=== PATIENT | female | born 1960 | race Caucasian/White ===

== ENCOUNTER 2021-06-06 09:12 | Emergency (ER) | payer OTHER, SELFPAY ==
[2021-06-06] VITALS (7 sets, daily range): BP systolic 151–189; BP diastolic 82–116; PULSE 69–108; RESP 15–20; TEMP 36.5–36.9; O2SAT 97–100
--- NOTE | ~2021-06-06 | XR_ITS ---
XR chest 2V DATE: 06/06/2021 09:39 INDICATION: Chest pain, shortness of breath. Chest tightness. Dizziness. TECHNIQUE: 2 views COMPARISON: None FINDINGS: Normal heart size. No hilar or mediastinal enlargement. Bilateral hyperinflation suggests COPD. No pulmonary infiltrate or consolidation, pleural effusion or pulmonary vascular congestion or pneumothorax is detected. Diffuse osteopenia. IMPRESSION: Bilateral hyperinflation; no active cardiopulmonary disease Reviewed, dictated and finalized at location A. ICE COUNTER CASHIER
--- NOTE | ~2021-06-06 | CT_ITS ---
EXAMINATION: CT brain wo con EXAM DATE: 06/06/2021 15:10 INDICATION: Dizziness. TECHNIQUE: Spiral CT of the head was performed without contrast. Axial, coronal and sagittal images were reviewed. The dose-length product (DLP) for this examination was 605.33 mGy-cm. The exposure w as tailored according to patient size, and iterative reconstruction (ASIR) was used as additional dos e reduction technique. There is no prior study for comparison. FINDINGS: There is no acute intraparenchymal hemorrhage. No evidence of intraparenchymal brain mass lesion. No evidence of acute infarction. There is no mass effect or midline shift. The ventricles are normal in size. There are no extra-axial collections. There are no acute calvarial fractures. T he orbits are unremarkable. Soft tissue is unremarkable. The visualized sinuses and mastoid air shima ls are well aerated. IMPRESSION: 1. No acute intracranial findings. Reviewed, dictated and finalized at location A. [employer] COMPENSATION LEGAL SECRETARY
--- NOTE | ~2021-06-06 | CT_ITS ---
EXAMINATION: CTA chest PE protocol EXAM DATE: 06/06/2021 15:10 INDICATION: Chest pain, sob, abnormal d dimer. TECHNIQUE: Spiral CTA of the chest (pulmonary arteries) was performed with 100 cc Omnipaque 350 intr avenous contrast injection. Images were acquired during the pulmonary arterial phase. Coronal maxi mum intensity projection 3D-reconstructions were created by the technologist on dedicated workstation . Axial, coronal and sagittal reformatted images were reviewed. The dose-length product (DLP) for t his examination was 151.89 mGy-cm. The exposure was tailored according to patient size (auto mA exp osure control), and iterative reconstruction (ASIR) was used as additional dose reduction technique. There is no prior study for comparison. FINDINGS: Pulmonary arteries are well opacified and without intraluminal filling defects. There is m oderate emphysema. No thoracic aortic dissection. The lungs are clear. There are no pleural or pe ricardial effusions. Tracheobronchial tree is patent. Small pocket of gas right posterolateral aspe ct of the trachea probably tracheal diverticulum. There is no mediastinal, hilar or axillary lymphade nopathy. There is no pneumothorax. Heart normal in size. There is mild coronary arterial calcif ication, arterial sclerosis. Upper abdomen is unremarkable. The bones are unremarkable. IMPRESSION: 1. No pulmonary emboli or acute cardiopulmonary findings. 2. Moderate emphysema. Reviewed, dictated and finalized at location A. LRY SORTER
--- NOTE | 2021-06-06 09:31 | ECG_ITS ---
Measurements Intervals Gem Rate: 88 P: 88 WI: 162 QRS: -48 QRSD: 91 T: 69 QT: 359 QTc: 436 Interpretive Statements SINUS RHYTHM RIGHT ATRIAL ENLARGEMENT POSSIBLE LEFT ATRIAL ENLARGEMENT LEFT AXIS DEVIATION INCOMPLETE RIGHT BUNDLE BRANCH BLOCK DELAYED PRECORDIAL R/S TRANSITION CONSIDER INFERIOR INFARCT, AGE INDETERMINATE BASELINE ARTIFACT- I, AVR, AVL ABNORMAL ECG Electronically Signed On 06-06-2021 10:13:23 HR OPERATIONS ADVISOR by Misbah Dinh D.O.
[2021-06-06 10:23] LABS: Basophils Absolute Auto 0.1 K/mm3 (0.0-0.1); Basophils Percent Auto 0.6 % (0.2-1.2); Eosinophils Absolute Auto 0.1 K/mm3 (0-0.3); Eosinophils Percent Auto 0.6 % (0-4.4); Hematocrit 44.5 % (37.0-47.0); Hemoglobin 14.9 g/dL (12.0-15.0); Immature Granulocyte Absolute 0.03 K/mm3 (0.00-0.031); Immature Granulocyte Percent A 0.3 % (0-0.5); Lymphocytes Absolute Auto 2.62 K/mm3 (0.9-3.2); Lymphocytes Percent Auto 23.9 % (18.3-44.2); Mean Corpuscular HGB Conc 33.5 g/dl (32-36); Mean Corpuscular Volume 89.7 fl (80-100); Mean Platelet Volume 10.9 fl (7.4-10.4); Monocytes Absolute Auto 0.6 K/mm3 (0.1-0.6); Monocytes Percent Auto 5.1 % (2.6-8.5); Neutrophils Absolute Auto 7.6 K/mm3 (1.3-6.7); Neutrophils Percent Auto 69.5 % (45.5-73.1); Platelet Count Result 237 k/mm3 (150-375); Red Blood Count 4.96 M/mm3 (4.2-5.4); Red Cell Distribution Width 12.7 % (11.5-14.5)
[2021-06-06 10:31] LABS: Prothrombin Time 12.6 Seconds (11.1-14.7)
[2021-06-06 10:32] LABS: Partial Thromboplastin Time 36.5 SECONDS (22.3-36.8)
[2021-06-06 10:33] LABS: Alanine Aminotransferase 14 U/L (4-35); Albumin Level 4.6 g/dL (3.5-5.1); Alkaline Phosphatase 70 U/L (38-126); Anion Gap 6 mmol/L (8-16); Aspartate Amino Transferase 23 U/L (14-36); Bilirubin,Total 0.4 mg/dL (0.2-1.3); Blood Urea Nitrogen 12 mg/dL (7-17); Carbon Dioxide 29 mmol/L (22-30); Chloride 105 mmol/L (98-107); Estimated CRCL calculation 59 ml/min; Estimated Glomerular Filt Rate > 60; Glucose 95 mg/dL (65-110); Lipase 81 U/L (23-300); Potassium 3.8 mmol/L (3.4-5.0); Sodium 140 mmol/L (137-145)
[2021-06-06 10:47] LABS: Troponin I < 0.012 ng/mL (0.000-0.034)
[2021-06-06] MEDS: ASPIRIN 81 MG CHEWABLE TABLET 324 MG PO (13:12)
[2021-06-06 13:30] LABS: Troponin I < 0.012 ng/mL (0.000-0.034)
[2021-06-06 13:34] LABS: D Dimer 0.85 ug/mL (<0.48)
--- NOTE | 2021-06-06 13:53 | ED.GENADULT ---
HPI - General Adult General Chief complaint: Chest Pain Stated complaint: dizzy, sob Time Seen by Provider: 06/06/21 13:04 Source: patient History of Present Illness HPI narrative: Patient is a 60 y/o female complaining of chest pain, SOB and dizziness starting about 5:30 AM this morning. She states that she was coming back from walking her dog. She describes her chest pain as a tightness and rates it as 8/10. This lasted about 1 minute and began to ease spontaneously. She describes her dizziness as light-headedness and room spinning sensation. Related Data Home Medications Medication Instructions Recorded Confirmed No Home Medications 06/06/21 06/06/21 Allergies Allergy/AdvReac Type Severity Reaction Status Date / Time No Known Allergies Allergy Unverified 06/06/21 13:13 Review of Systems Constitutional: Constitutional: Denies chills, Denies fever(s), Denies headache(s) and Denies weakness Eyes: Eyes: Denies blurry vision ENT: Denies headache(s) and Denies neck pain Cardiovascular: Cardiovascular: Reports chest pain and Reports dyspnea Respiratory: Respiratory: Denies cough and Reports dyspnea Gastrointestinal: Gastrointestinal: Denies abdominal pain, Denies diarrhea, Denies nausea and Denies vomiting Genitourinary: Genitourinary: Denies hematuria and Denies dysuria Musculoskeletal: Musculoskeletal: Denies back pain and Denies neck pain Neurologic: Reports dizziness, Denies headache(s) and Denies weakness Exam Const: General: no acute distress and well developed Orientation/consciousness: oriented to person, oriented to place, oriented to time and patient oriented x3 HENMT: Head: normocephalic Ears: external ears normal General nose exam: Normal external nose present Eyes: General: appearance normal, both eyes and all related structures Conjunctivae: conjunctivae normal Neck: Neck: normal visual inspection and full ROM Chest: Chest palpation & inspection: normal inspection of the chest and no tenderness Resp: Effort & Inspection: normal respiratory effort Auscultation: clear to auscultation bilaterally Cardio: Rate: regular rate Rhythm: regular rhythm GI: GI Palp: No abdominal tenderness and Yes Soft to palpation Skin: General skin exam: normal color and turgor normal Neuro: General: oriented to person, oriented to place, oriented to time and patient oriented x3 Cranial nerves: Yes CN's II-XII intact bilaterally Cognition (Neuro): normal cognition Speech: normal speech Motor exam (neuro): 5/5 motor strength present throughout Sensory Exam: normal sensation Coordination: [id number] test normal and [id number] test normal Extrem: General: normal to inspection, full ROM and no pedal edema Psych: Appearance: grossly normal Mental Status: mental status grossly normal Affect: normal affect Course Vital Signs Vital signs: Vital Signs Temperature 36.9 C 06/06/21 09:16 Pulse Rate 108 H 06/06/21 09:16 Respiratory Rate 20 06/06/21 09:16 Blood Pressure 189/116 H 06/06/21 09:16 Pulse Oximetry 98 06/06/21 09:16 Temperature 36.5 C 06/06/21 12:32 Pulse Rate 76 06/06/21 16:35 Respiratory Rate 18 06/06/21 16:35 Blood Pressure 162/82 H 06/06/21 16:35 Pulse Oximetry 98 06/06/21 16:35 Medical Decision Making Vital Signs Vital Signs: Vital Signs Temperature 36.9 C 06/06/21 09:16 Pulse Rate 108 H 06/06/21 09:16 Respiratory Rate 20 06/06/21 09:16 Blood Pressure 189/116 H 06/06/21 09:16 Pulse Oximetry 98 06/06/21 09:16 Temperature 36.5 C 06/06/21 12:32 Pulse Rate 76 06/06/21 16:35 Respiratory Rate 18 06/06/21 16:35 Blood Pressure 162/82 H 06/06/21 16:35 Pulse Oximetry 98 06/06/21 16:35 Lab Data Result diagrams: 06/06/21 10:08 06/06/21 10:08 Labs: Lab Results 06/06/21 06/06/21 06/06/21 Range/Units 10:08 10:08 10:08 WBC 11.0 H (4.5-10.0) K/mm3 RBC 4.96 (4.2-5.4) M/mm3
[2021-06-06 16:13] LABS: Troponin I < 0.012 ng/mL (0.000-0.034)
== END 2021-06-06 16:36 | disposition home or self-care (01) ==
PROVIDERS: Emergency Medicine; Emergency Provider Emergency Medicine
DX: R07.89 Other chest pain (principal); R42 Dizziness and giddiness; I45.10 Unspecified right bundle-branch block; R94.31 Abnormal electrocardiogram [ECG] [EKG]
CPT/HCPCS: 36415; 70450; 71046; 71275; 80053; 83690; 84484; 85025; 85380; 85610; 85730; 93005; 99284; A9270; Q9967